=== PATIENT | female | born 1975 | race Caucasian/White ===

== ENCOUNTER 2017-10-27 09:28 | Outpatient (CLI) | payer OTHER ==
[~2017-10-27 09:28] MED LIST: ALTACE10 MG PO; ARIMIDEX; FOLIC ACID0.4 MG PO; IRON325 ( 65 ) PO; PAXIL20 MG PO; SIMVASTATIN40 MG PO; ZOLADEX SQ; [UNRECOGNIZED DRUG - OTHER] SQ
== END 2017-10-27 09:31 | disposition home or self-care (01) ==
LOC: SONOGRAMA 09:28
DX: E04.1 Nontoxic single thyroid nodule (principal)

== ENCOUNTER 2018-12-04 07:44 | Outpatient (CLI) | payer OTHER | END 2018-12-04 07:50 | disposition home or self-care (01) | LOC: SONOGRAMA 07:44 | DX: E04.1 Nontoxic single thyroid nodule (principal) ==

== ENCOUNTER 2020-09-29 05:30 | Day surgery (SDC) | payer OTHER ==
[~2020-09-29 05:30] MED LIST changes: +ALTACE2.5 MG PO
== END 2020-09-29 14:05 | disposition home or self-care (01) ==
LOC: CIR.AMB 05:30
PROVIDERS: ATTEND Obstetrics & Gynecology
DX: N95.0 Postmenopausal bleeding (principal); Z20.822 Contact with and (suspected) exposure to COVID-19